=== PATIENT | female | born 1960 | race Caucasian/White ===

== ENCOUNTER 2017-10-29 13:35 | Emergency (ER) | payer MEDICAID ==
[~2017-10-29] VITALS: Ht 157.5 cm; Wt 63.5 kg
--- NOTE | 2017-10-29 14:00 | NUR ---
PT ARRIVED INER DUE TO TONIC CLONIC SEIZURE Addendum: 10/29/17 at 1927 by [email or web address] PT ARRIVED IN ER DUE TO A TONIC CLONIC SEZUIRE AT HOME WITTNESSED BY HER BROTHER. RESIDENT ARRIVED ALERTAND FOLLOWING SIMPLE COMMANDS BUT NOT INTERACTIVE WITH STAFF. SHE WAS NOTED SELF SOOTHING BY ROCKING. RESPS EVEN AND UNLABORED. SKIN COOL TO THE TOUCH. NO S/S OF PAIN OR DISTRESS NOTED. UNKNOWN WHETHER PT WAS TAKING HER MEDS PERSCRIBED OR WETHER PT HAS HAD OTHER RECENT SEIZURES
--- NOTE | 2017-10-29 14:02 | NUR ---
PT SITTING UP IN BED ALERT BUT NOT INTERACTING WITH STAFF. SHE IS WITTNESSED SELF SOOTHING BY ROCKING. NO INJURIES NOTED. Addendum: 10/29/17 at 1850 by [email or web address] PT SITTING AT BEDSIDE WITH ALERT BUT NOT INTERACTING WITH STAFF. SHE IS NOTED ROCKING TO SELF SOOTH AT THIS TIME. FAMILY AT BEDSIDE. .NO RECENT SEIZURES REPORTED EXCEPT FOR THE 5 MINUTE TONIC CLONIC SEZIURE WITNESSED BY BROTHER BEFORE RESIDENT WAS BROUGHT TO ER.
[2017-10-29 14:31] VITALS: BP 123/81
[2017-10-29] MEDS ORDERED: NACL 0.9% 1,000 ML IV SCH (14:56)
[2017-10-29] MEDS ORDERED: KETOROLAC 30 MG/ML VIAL IVP ONE (15:00)
--- NOTE | 2017-10-29 15:00 | NUR ---
FAMILY AT BED SIDE AT THIS TIME, SEZIURE PRECAUTIONS IN PLACE NO S/S OF DISTRESS FORM PT. NO SEZIURE ACTIVITY NOTED.
[2017-10-29 15:35] LABS: BASOPHILS % (AUTO) 0.2 % (0.0-2.0); HEMATOCRIT 44.1 % (36-48); HEMOGLOBIN 14.9 g/dL (12.0-16.0); LYMPHOCYTES # (AUTO) 0.7 K/uL (2.5-16.5); LYMPHOCYTES % (AUTO) 10.5 % (20.5-51.1); MEAN CORPUSCULAR HEMOGLOBIN 32 pg (27-31); MEAN CORPUSCULAR HGB CONC 34 g/dL (33-37); MONOCYTES # (AUTO) 0.3 K/uL (0.8-1.0); MONOCYTES % (AUTO) 4.1 % (1.7-9.3); NEUTROPHILS # (AUTO) 5.6 K/uL (1.8-7.7); NEUTROPHILS % (AUTO) 85.2 % (42.2-75.2); PLATELET COUNT (AUTO) 275 K/uL (140-450); RED BLOOD CELL COUNT(AUTO) 4.74 MIL/uL (4.20-5.40); RED CELL DISTRIBUTION WIDTH 13.2 % (11.6-13.7); WHITE BLOOD COUNT (AUTO) 6.6 K/uL (4.8-10.8)
[2017-10-29 15:46] LABS: ANION GAP 15.1 (8-16); CARBON DIOXIDE 26.4 mmol/L (21-32); CREATININE 0.8 mg/dL (0.6-1.3); POTASSIUM 3.5 mmol/L (3.5-5.1)
[2017-10-29 15:52] LABS: ALBUMIN 4.5 g/dL (3.4-5.0); TOTAL BILIRUBIN 0.3 mg/dL (0.0-1.0)
--- NOTE | 2017-10-29 16:50 | NUR ---
IV FLUID BOLUS OF NACL GIVNE WELL TORADOL SHOT FOR PAIN WITH POSITIVE EFFECT NOTED. FAMILY AT BEDSIDE PT COOPERATIVE WITH NO NEW [id number] NOTED. NO SEZIURE ACTIVITY NOTED.
--- NOTE | 2017-10-29 18:11 | NUR ---
Patient discharged with v/s stable. Written and verbal after care instructions given and explained. Patient verbalized understanding. Ambulatory with steady gait. All questions addressed prior to discharge. Advised to follow up with PMD. NOEL SILVA,
[2017-10-29 19:03] VITALS: BP 132/78
== END 2017-10-29 18:10 | disposition home or self-care (01) ==
LOC: MED 13:35
DX: R10.9 Unspecified abdominal pain (principal); G40.909 Epilepsy, unspecified, not intractable, without status epilepticus
CPT/HCPCS: 36415; 74176; 80053; 82150; 82948; 83690; 85025; 96360; 96372; 99285; J1885